=== PATIENT | male | born 1975 | race Caucasian/White ===

== ENCOUNTER 2016-06-17 18:32 | Emergency (ER) | payer OTHER ==
[2016-06-17 18:46] VITALS: BP 137/84; PULSE 104; TEMP 100.1; BMI 41.3
[2016-06-17] MEDS ORDERED: AZITHROMYCIN 250 MG TABLET (FP) PO ONE (19:41)
--- NOTE | 2016-06-17 19:43 | PDOC ---
History of Present Illness - General History Source: Patient Exam Limitations: No Limitations - History of Present Illness Initial Comments: 06/17/16 19:57 The patient is a 40 year old male, with a significant past medical history of HTN, who presents to the emergency department with body aches, nonproductive cough, sore throat, and ear congestion since yesterday morning. The patient ranks his body ache pain a 10/10 in pain intensity. He reports taking two 800mg of Motrin this morning with no alleviation of his symptoms. He reports his has had persistent similar symptoms recently. Patient is here with his who is also being evaluated in this ER. He reports having that he has had a decreased appetite and notes mild diarrhea. He reports getting an injection in the arm from his PCP, with no alleviation of his symptoms. Patient reports getting his flu shot this year. He denies chest pain and shortness of breath. He denies fever, headache and dizziness. He denies nausea, vomit, and constipation. He denies dysuria, frequency, urgency and hematuria. Allergies: NKA Past surgical history: denies Social History:denies cigarette use, EtOH use, and drug use. <Harrison Hollis - Last Filed: 06/17/16 19:57> <Nancy De Oliveira - Last Filed: 06/18/16 04:31> - General Chief Complaint: Cold Symptoms Stated Complaint: BODY ACHES, SORE THROAT Time Seen by Provider: 06/17/16 19:10 Past History <Harrison Hollis - Last Filed: 06/17/16 19:57> - Past Medical History HTN: Yes - Psycho/Social/Smoking Cessation Hx Anxiety: No Suicidal Ideation: No Smoking Status: No Smoking History: Never smoked Have you smoked in the past 12 months: No Number of Cigarettes Smoked Daily: 0 Information on smoking cessation initiated: No Hx Alcohol Use: No Drug/Substance Use Hx: No Substance Use Type: None <Nancy De Oliveira - Last Filed: 06/18/16 04:31> - Past Medical History Allergies/Adverse Reactions: Allergies Allergy/AdvReac Type Severity Reaction Status Date / Time No Known Allergies Allergy Verified 06/17/16 18:35 Home Medications: Ambulatory Orders Amlodipine Besylate [Norvasc -] 10 mg PO DAILY 07/20/14 Aspirin [Ecotrin] 81 mg PO DAILY 07/20/14 Azithromycin 250 mg PO DAILY #4 tablet 06/17/16 Ibuprofen [Motrin -] 1,600 mg PO ONCE 06/17/16 Review of Systems - Review of Systems All Other Systems: Reviewed and Negative <Harrison Hollis - Last Filed: 06/17/16 19:57> *Physical Exam - Vital Signs Last Vital Signs Temp Pulse Resp BP Pulse Ox 100.1 F H 104 H 20 137/84 97 06/17/16 18:33 06/17/16 18:33 06/17/16 18:33 06/17/16 18:33 06/17/16 19:50 - Physical Exam Comments: 06/17/16 19:57 GENERAL: The patient is awake, alert, and fully oriented, in no acute distress. HEAD: Normal with no signs of trauma. EYES: Pupils equal, round and reactive to light, extraocular movements intact, sclera anicteric, conjunctiva clear with no pallor. ENT: Ears normal, nares patent. Moist mucous membranes. 2+ edema bilateral tonsils with erythema and white plaque on both tonsils. No peritonsillar abscess evident. NECK: Normal range of motion, JVD, or masses. edematous tender anterior cervical lymph nodes bilaterally. LUNGS: Breath sounds equal, clear to auscultation bilaterally. No wheeze/ crackles. HEART: Regular rate and rhythm, normal S1 and S2 without murmur or rub. ABDOMEN: Soft/nontender/nondistended. BS wnl. No guarding or rebound. No palpable masses. No hepatosplenomegaly. EXTREMITIES: Normal range of motion, no edema. No clubbing or cyanosis. No cords , erythema, or tenderness. NEUROLOGICAL: Cranial nerves II through XII grossly intact. Normal speech, normal gait. PSYCH: Normal mood, normal affect. SKIN: Warm, Dry, normal turgor, no rashes or lesions noted. <Harrison Hollis - Last Filed: 06/17/16 19:57> - Vital Signs Last Vital Signs Temp Pulse Resp BP Pulse Ox 100.1 F H 104 H 20 137/84 97 06/17/16 18:33 06/17/16 18:33 06/17/16 18:33 06/17/16 18:33 06/17/16 18:33 <Nancy De Oliveira - Last Filed: 06/18/16 04:31> ED Treatment Course - ADDITIONAL ORDERS Additional order review: 06/17/16 19:00 Group A Strep Rapid Antigen - Final Throat - Medications Given in the ED: ED Medications Discontinued Medications Generic Name Dose Route Start Last Admin Trade Name Liz PRN Reason Stop Dose Admin Azithromycin 500 mg 06/17/16 19:41 06/17/16 19:47 Zithromax - PO 06/17/16 19:42 500 mg ONCE ONE Administration <Harrison Hollis - Last Filed: 06/17/16 19:57> - ADDITIONAL ORDERS Additional order review: 06/17/16 19:00 Group A Strep Rapid Antigen - Final Throat <Nancy De Oliveira - Last Filed: 06/18/16 04:31> Medical Decision Making - Medical Decision Making Documentation has been prepared under my direction and personally reviewed by me in its entirety. I attest that this documented accurately reflects all work, treatment, procedures and medical decision making performed by me. As noted above, this otherwise healthy 40-year-old man presents with body aches/ malaise for 2 days and sore throat today. Patient has been exposed to acute strep pharyngitis in 8-year-old son who was treated for this last week. Patient himself has had strep pharyngitis in the last year. Exam notable for exudative pharyngitis with tender lymphadenopathy of bilateral anterior cervical nodes. Quick strep positive. Patient will be started on azithromycin (Z-Cayden) with first dose of 500 mg given in emergency room. Toradol 60 mg IM and given for analgesia. Patient should not work tomorrow and patient given documentation for this. He should return to the emergency room or see his doctor if he has severe pain or high fever. <Nancy De Oliveira - Last Filed: 06/18/16 04:31> *DC/Admit/Observation/Transfer - Attestations Scribe Attestion: 06/17/16 19:57 Documentation prepared by Harrison Hollis, acting as medical anthropologist for Nancy De Oliveira MD. <Harrison Hollis - Last Filed: 06/17/16 19:57> <Nancy De Oliveira - Last Filed: 06/18/16 04:31> Diagnosis at time of Disposition: Strep pharyngitis - Discharge Dispostion Disposition: HOME Condition at time of disposition: Stable - Prescriptions Prescriptions: Azithromycin 250 mg PO DAILY #4 tablet - Patient Instructions Printed Discharge Instructions: DI for Strep Throat Additional Instructions: Rest; drink plenty fluids Azithromycin 250 mg daily for the next 4 days Motrin/Aleve/Tylenol as needed for pain No work until June 19 Return or see your doctor if you have persistent pain/fever - Post Discharge Activity Work/School Note: Back to Work
[2016-06-17] MEDS ORDERED: AZITHROMYCIN 250 MG TABLET (FP) ONE ×2 (19:48→19:56)
[2016-06-17] MEDS ORDERED: KETOROLAC TROMETHAMINE 60 MG/2 ML VIAL ONE (20:01)
== END 2016-06-17 20:06 | disposition home or self-care (01) ==
LOC: FER 18:32
DX: J02.0 Streptococcal pharyngitis (principal); I10 Essential (primary) hypertension
CPT/HCPCS: 87070; 87077; 87430; 87804; 99283-25